=== PATIENT | female | born 1960 | race African-American/Black ===

== ENCOUNTER 2017-01-30 12:24 | Emergency (ER) | payer SELFPAY ==
[~2017-01-30] VITALS: Ht 170.2 cm; Wt 85.0 kg
[~2017-01-30 12:24] MED LIST: AMLODIPINE; LOTENSIN
[2017-01-30] MEDS ORDERED: ONDANSETRON HCL 4MG/2ML VIAL IV STA (13:07)
[2017-01-30] MEDS ORDERED: MORPHINE SULFATE 4 MG/ML CPJ (NOT FOR IM USE) IV STA (13:07)
[2017-01-30 13:58] LABS: CLARITY URINE CLEAR (CLEAR); COLOR URINE DARK YELLOW (YELLOW); GLUCOSE URINE NEGATIVE (NEGATIVE); KETONES URINE 1+ (NEGATIVE); LEUKOCYTE ESTERASE URINE TRACE (NEGATIVE); NITRITE URINE NEGATIVE (NEGATIVE); OCCULT BLOOD URINE TRACE (NEGATIVE); PH URINE 5.5 (4.5-8.0); PROTEIN URINE TRACE (NEGATIVE); SPECIFIC GRAVITY URINE 1.019 (1.005-1.030)
[2017-01-30 14:02] LABS: HEMATOCRIT. 35.5 % (36.0-48.0); HEMOGLOBIN. 12.2 g/dL (12.0-16.0); MEAN CORPUSCULAR HEMOGLOBIN 30.1 pg (28.0-32.0); MEAN CORPUSCULAR VOLUME 87.1 fL (81.0-99.0); MEAN PLATELET VOLUME 8.6 fl (7.4-10.4); PLATELET 245 x1000/uL (130-400); RED BLOOD CELL COUNT 4.07 mill/uL (4.2-5.4)
[2017-01-30 14:11] LABS: INR 1.1
[2017-01-30 14:17] LABS: CARBON DIOXIDE 31 mEq/L (21-32); CHLORIDE 98 mEq/L (98-107)
[2017-01-30 14:28] LABS: PLATELET ESTIMATE NORMAL
[2017-01-30] MEDS ORDERED: POTASSIUM CHLORIDE 20MEQ TABLET SR PO ONE (15:00)
[2017-01-30 15:39] VITALS: BP 134/84
== END 2017-01-30 15:40 | disposition home or self-care (01) ==
LOC: ER 13:44
DX: N39.0 Urinary tract infection, site not specified (principal); I10 Essential (primary) hypertension; K76.0 Fatty (change of) liver, not elsewhere classified; Z91.030 Bee allergy status
CPT/HCPCS: 36415; 76705; 80053; 81001; 83690; 85025; 85610; 96374; 96375; 99285; J2270; J2405

== ENCOUNTER 2017-03-02 07:17 | Emergency (ER) | payer MEDICAID, OTHER ==
[~2017-03-02] VITALS: Ht 170.2 cm; Wt 89.0 kg
[2017-03-02] MEDS ORDERED: KETOROLAC 60MG/2ML VIAL IM ONE (08:15)
[2017-03-02 09:49] VITALS: BP 150/77
== END 2017-03-02 09:50 | disposition home or self-care (01) ==
LOC: ER 07:48
DX: M54.2 Cervicalgia (principal); I10 Essential (primary) hypertension; Z91.030 Bee allergy status
CPT/HCPCS: 96372; 99283; J1885; Z7610

== ENCOUNTER 2017-04-14 13:33 | Emergency (ER) | payer OTHER ==
[~2017-04-14] VITALS: Ht 170.2 cm; Wt 89.0 kg
[2017-04-14] MEDS ORDERED: KETOROLAC 60MG/2ML VIAL IM ONE (16:45)
[2017-04-14 17:50] VITALS: BP 159/88
== END 2017-04-14 18:16 | disposition home or self-care (01) ==
LOC: ER 16:40
DX: M25.571 Pain in right ankle and joints of right foot (principal); I10 Essential (primary) hypertension
CPT/HCPCS: 96372; 99283; J1885

== ENCOUNTER 2017-08-12 13:44 | Emergency (ER) | payer OTHER ==
[~2017-08-12] VITALS: Ht 170.2 cm; Wt 86.0 kg
[2017-08-12 13:45] VITALS: BP 159/72
[2017-08-12] MEDS ORDERED: FURO-151 PO (13:51)
[2017-08-12] MEDS ORDERED: KETOROLAC 60MG/2ML VIAL IM ONE (14:45)
[2017-08-12 15:11] LABS: CLARITY URINE CLEAR (CLEAR); COLOR URINE YELLOW (YELLOW); KETONES URINE TRACE (NEGATIVE); LEUKOCYTE ESTERASE URINE NEGATIVE (NEGATIVE); NITRITE URINE NEGATIVE (NEGATIVE); OCCULT BLOOD URINE NEGATIVE (NEGATIVE); PROTEIN URINE NEGATIVE (NEGATIVE); SPECIFIC GRAVITY URINE 1.031 (1.005-1.030)
== END 2017-08-12 16:17 | disposition home or self-care (01) ==
LOC: ER 14:54
DX: S39.012A Strain of muscle, fascia and tendon of lower back, initial encounter (principal); R82.90 Unspecified abnormal findings in urine; I10 Essential (primary) hypertension; Z91.030 Bee allergy status; X50.0XXA Overexertion from strenuous movement or load, initial encounter; Y93.89 Activity, other specified; Y92.218 Other school as the place of occurrence of the external cause; Y99.8 Other external cause status
CPT/HCPCS: 81003; 96372; 99283; J1885

== ENCOUNTER 2017-12-19 09:28 | Emergency (ER) | payer OTHER ==
[~2017-12-19] VITALS: Ht 170.2 cm; Wt 83.0 kg
[~2017-12-19 09:28] MED LIST changes: +FURO-151 PO
[2017-12-19 10:25] LABS: CLARITY URINE CLEAR (CLEAR); COLOR URINE YELLOW (YELLOW); KETONES URINE NEGATIVE (NEGATIVE); LEUKOCYTE ESTERASE URINE NEGATIVE (NEGATIVE); NITRITE URINE NEGATIVE (NEGATIVE); OCCULT BLOOD URINE NEGATIVE (NEGATIVE); PH URINE 5.5 (4.5-8.0); PROTEIN URINE NEGATIVE (NEGATIVE); SPECIFIC GRAVITY URINE 1.029 (1.005-1.030)
[2017-12-19] MEDS ORDERED: ACETAMINOPHEN 500MG TABLET PO ONE (11:30)
[2017-12-19] MEDS ORDERED: IBUPROFEN 600MG TABLET PO ONE (11:30)
[2017-12-19 11:50] VITALS: BP 158/72
== END 2017-12-19 11:52 | disposition home or self-care (01) ==
LOC: ER 10:25
DX: S70.02XA Contusion of left hip, initial encounter (principal); S93.401A Sprain of unspecified ligament of right ankle, initial encounter; I10 Essential (primary) hypertension; Z88.8 Allergy status to other drugs, medicaments and biological substances; W19.XXXA Unspecified fall, initial encounter; Y93.89 Activity, other specified; Y92.89 Other specified places as the place of occurrence of the external cause; Y99.8 Other external cause status
CPT/HCPCS: 73502; 73610; 81003; 99285

== ENCOUNTER 2019-09-19 09:39 | Emergency (ER) | payer OTHER ==
[~2019-09-19] VITALS: Ht 170.2 cm; Wt 93.0 kg
[2019-09-19] MEDS ORDERED: KETOROLAC 60MG/2ML VIAL IM STA (11:26)
[2019-09-19 13:44] VITALS: BP 140/70
== END 2019-09-19 13:43 | disposition home or self-care (01) ==
LOC: ER 09:39
DX: S16.1XXA Strain of muscle, fascia and tendon at neck level, initial encounter (principal); I10 Essential (primary) hypertension; Z91.030 Bee allergy status; Z79.899 Other long term (current) drug therapy; V49.88XA Car occupant (driver) (passenger) injured in other specified transport accidents, initial encounter; Y93.89 Activity, other specified; Y92.89 Other specified places as the place of occurrence of the external cause; Y99.8 Other external cause status
CPT/HCPCS: 72125; 96372; 99284; J1885